=== PATIENT | male | born 1960 | race African-American/Black ===

== ENCOUNTER 2018-05-09 22:55 | Inpatient (IN) | payer MEDICAID ==
[~2018-05-09] VITALS: Ht 177.8 cm; Wt 77.1 kg
[2018-05-10] MEDS ORDERED: ALBUTEROL (0.083%) 2.5MG/3ML NEB HHN STA (02:41)
[2018-05-10] MEDS ORDERED: IPRATROPIUM BROMIDE (0.02%) 0.5MG/2.5ML NEB HHN STA (02:41)
[2018-05-10] MEDS ORDERED: METHYLPREDNISOLONE SOD SUCC 125 MG/2 ML VIAL IV STA (02:41)
[2018-05-10] MEDS ORDERED: ASPIRIN 81MG TABLET PO ONE (02:45)
[2018-05-10] MEDS ORDERED: SODIUM CHLORIDE 0.9% 1000ML BAG (SEPSIS BOLUS) IV ONE (02:45)
[2018-05-10] MEDS ORDERED: NITROGLYCERIN 0.4MG TABLET SL SL PRN (02:45)
[2018-05-10] MEDS ORDERED: LEVOFLOXACIN 750MG PREMIX 150 ML IV ONE (02:45)
[2018-05-10 03:34] LABS: BASOPHILS % 0.5 % (0.0-2.0); EOSINOPHILS % 4.7 % (0.0-5.0); HEMATOCRIT. 38.2 % (42.0-52.0); HEMOGLOBIN. 13.1 g/dL (14.0-18.0); LYMPHOCYTES % 17.1 % (20.0-50.0); MEAN CORPUSCULAR HEMOGLOBIN 30.8 pg (28.0-32.0); MEAN CORPUSCULAR VOLUME 89.9 fL (80.0-94.0); MEAN PLATELET VOLUME 9.7 fl (7.4-10.4); MONOCYTES % 6.5 % (2.0-8.0); NEUTROPHILS % 71.2 % (40.0-76.0); PLATELET 219 x1000/uL (130-400); RED BLOOD CELL COUNT 4.25 mill/uL (4.7-6.1); RED CELL DISTRIBUTION WIDTH 14.2 % (11.6-14.6)
[2018-05-10 03:45] LABS: CHLORIDE 100 mEq/L (98-107)
[2018-05-10 03:47] LABS: D-DIMER 2.77 mg/L FEU (<0.50); PARTIAL THROMBOPLASTIN TIME 29.6 sec (23.4-31.0)
[2018-05-10] MEDS ORDERED: IOHEXOL-350 100 ML BOTTLE ONE (04:54)
[2018-05-10 06:14] LABS: CLARITY URINE CLEAR (CLEAR); COLOR URINE YELLOW (YELLOW); KETONES URINE NEGATIVE (NEGATIVE); LEUKOCYTE ESTERASE URINE NEGATIVE (NEGATIVE); NITRITE URINE NEGATIVE (NEGATIVE); OCCULT BLOOD URINE NEGATIVE (NEGATIVE); PH URINE 7.5 (4.5-8.0); PROTEIN URINE NEGATIVE (NEGATIVE); SPECIFIC GRAVITY URINE 1.007 (1.005-1.030); UROBILINOGEN URINE 0.2 E.U./dL (0.2-1.0)
[2018-05-10] MEDS ORDERED: DEXTROSE 50% WATER 50ML SYRINGE IV PRN (09:00)
[2018-05-10] MEDS: AMLODIPINE 5MG TABLET PO SCH ×2 (09:24→21:26)
[2018-05-10] MEDS ORDERED: METHYLPREDNISOLONE SOD SUCC 40 MG/ML VIAL IV SCH (12:00)
[2018-05-10] MEDS ORDERED: IPRATROPIUM/ALBUTEROL 0.5-3(2.5)MG/3ML NEB HHN SCH (12:00)
[2018-05-10] MEDS ORDERED: INSULIN LISPRO 100 UNITS/ML SUBCUT SCH (13:11)
[2018-05-10 14:00] VITALS: BP 190/94
[2018-05-10] MEDS ORDERED: IPRATROPIUM/ALBUTEROL 0.5-3(2.5)MG/3ML NEB HHN PRN (14:00)
[2018-05-10 14:46] VITALS: BP 190/95
[2018-05-10] MEDS: BLOOD SUGAR DIAGNOSTIC STRIP TEST SCH ×3 (15:06→21:26)
[2018-05-10] MEDS: CLONIDINE 0.1MG TABLET PO PRN ×2 (15:09→23:54)
[2018-05-10 16:00] VITALS: BP 168/89
[2018-05-10] MEDS: AZITHROMYCIN 500 MG TABLET PO SCH (16:38)
[2018-05-10] MEDS: LOSARTAN POTASSIUM 100 MG TABLET PO SCH (16:38)
[2018-05-10] MEDS ORDERED: MONTELUKAST SODIUM 10MG TABLET PO SCH (17:00)
[2018-05-10] MEDS: INSULIN LISPRO 100 UNITS/ML SUBCUT SCH ×2 (17:57→21:28)
[2018-05-10 20:00] VITALS: BP 154/81
[2018-05-10 20:22] LABS: CREATINE KINASE 503 IU/L (39-308)
[2018-05-10] MEDS: INSULIN GLARGINE UD 100 UNITS/ML SYR SUBCUT SCH (21:29)
[2018-05-11] VITALS: BP 212/100
[2018-05-11 04:00] VITALS: BP 150/86
[2018-05-11] MEDS: BLOOD SUGAR DIAGNOSTIC STRIP TEST SCH ×2 (06:58→11:43)
[2018-05-11 07:06] LABS: BASOPHILS % 0.2 % (0.0-2.0); EOSINOPHILS % 1.1 % (0.0-5.0); HEMATOCRIT. 38.4 % (42.0-52.0); MEAN CORPUSCULAR HEMOGLOBIN 30.3 pg (28.0-32.0); MEAN CORPUSCULAR VOLUME 89.6 fL (80.0-94.0); MONOCYTES % 5.7 % (2.0-8.0); PLATELET 248 x1000/uL (130-400); RED BLOOD CELL COUNT 4.29 mill/uL (4.7-6.1); RED CELL DISTRIBUTION WIDTH 13.9 % (11.6-14.6)
[2018-05-11 07:22] LABS: CHLORIDE 101 mEq/L (98-107)
[2018-05-11 08:00] VITALS: BP 177/90
[2018-05-11] MEDS: INSULIN LISPRO 100 UNITS/ML SUBCUT SCH ×2 (09:12→13:09)
[2018-05-11] MEDS: INSULIN GLARGINE UD 100 UNITS/ML SYR SUBCUT SCH (09:12)
[2018-05-11] MEDS: AZITHROMYCIN 500 MG TABLET PO SCH (09:12)
[2018-05-11] MEDS: AMLODIPINE 5MG TABLET PO SCH (09:13)
[2018-05-11] MEDS: LOSARTAN POTASSIUM 100 MG TABLET PO SCH (09:14)
[2018-05-11] MEDS ORDERED: ACETAMINOPHEN 650MG/20.3ML UDC PO PRN (11:15)
[2018-05-11] MEDS ORDERED: HYDROCODONE/ACETAMINOPHEN 5/325MG TABLET PO PRN (11:15)
[2018-05-11 12:00] VITALS: BP 146/74
[2018-05-11] MEDS ORDERED: HYDRALAZINE HCL 50MG TABLET PO SCH (14:00)
[2018-05-11 15:57] VITALS: BP 137/85
== END 2018-05-11 16:30 | disposition home or self-care (01) | DRG 140 ==
LOC: ER 22:55 → 7WST 05-10 04:43 → ENRESERV 05-10 12:14
PROVIDERS: ADMIT Internal Medicine; ATTEND Internal Medicine
DX: J44.1 Chronic obstructive pulmonary disease with (acute) exacerbation (principal); I11.0 Hypertensive heart disease with heart failure; J45.901 Unspecified asthma with (acute) exacerbation; I50.42 Chronic combined systolic (congestive) and diastolic (congestive) heart failure; E11.9 Type 2 diabetes mellitus without complications; F17.200 Nicotine dependence, unspecified, uncomplicated; D64.9 Anemia, unspecified; Z79.899 Other long term (current) drug therapy
CPT/HCPCS: 36415; 71045; 71275; 80048; 80061; 82550; 82553; 82962; 83605; 83880; 84145; 84443; 84484; 85379; 93005; 93306; 93970; 94644; 97162; 99285; J1815; J1956; J2920; J2930; J7030; J7611; Q9967

== ENCOUNTER 2020-01-23 13:24 | Emergency (ER) | payer MEDICAID ==
[~2020-01-23] VITALS: Ht 180.3 cm; Wt 75.0 kg
[2020-01-23 13:37] VITALS: BP 165/95
== END 2020-01-23 16:40 | disposition left against medical advice (07) ==
LOC: ER 13:24
DX: Z53.21 Procedure and treatment not carried out due to patient leaving prior to being seen by health care provider (principal)

== ENCOUNTER 2020-11-17 15:31 | Emergency (ER) | payer MEDICAID ==
[~2020-11-17] VITALS: Ht 177.8 cm; Wt 72.0 kg
[2020-11-17] MEDS ORDERED: ACETAMINOPHEN 325MG TABLET PO ONE (16:30)
[2020-11-17 18:20] VITALS: BP 151/81
== END 2020-11-17 18:21 | disposition home or self-care (01) ==
LOC: ER 15:31
DX: M25.512 Pain in left shoulder (principal); E11.9 Type 2 diabetes mellitus without complications; I10 Essential (primary) hypertension; J45.909 Unspecified asthma, uncomplicated
CPT/HCPCS: 99281

== ENCOUNTER 2021-04-20 08:52 | Emergency (ER) | payer MEDICAID, OTHER ==
[~2021-04-20] VITALS: Ht 175.3 cm; Wt 73.0 kg
[2021-04-20 08:59] VITALS: BP 135/83
== END 2021-04-20 12:16 | disposition left against medical advice (07) ==
LOC: ER 08:52
DX: Z53.21 Procedure and treatment not carried out due to patient leaving prior to being seen by health care provider (principal); R06.02 Shortness of breath
CPT/HCPCS: 93005

== ENCOUNTER 2022-01-01 13:22 | Emergency (ER) | payer MEDICAID, OTHER ==
[~2022-01-01] VITALS: Ht 177.8 cm; Wt 70.0 kg
[2022-01-01 15:56] VITALS: BP 164/90
[2022-01-01] MEDS ORDERED: IBUPROFEN 800MG TABLET PO ONE (16:00)
[2022-01-01 16:42] LABS: BASOPHILS % 0.6 % (0.0-2.0); EOSINOPHILS % 2.8 % (0.0-5.0); HEMATOCRIT. 42.4 % (42.0-52.0); HEMOGLOBIN. 14.7 g/dL (14.0-18.0); LYMPHOCYTES % 24.1 % (20.0-50.0); MEAN CORPUSCULAR HEMOGLOBIN 30.9 pg (28.0-32.0); MEAN PLATELET VOLUME 9.7 fl (7.4-10.4); MONOCYTES % 5.7 % (2.0-8.0); NEUTROPHILS % 66.8 % (40.0-76.0); PLATELET 263 x1000/uL (130-400); RED BLOOD CELL COUNT 4.76 mill/uL (4.7-6.1); RED CELL DISTRIBUTION WIDTH 13.7 % (11.6-14.6)
[2022-01-01 16:55] LABS: CHLORIDE 100 mEq/L (98-107)
[2022-01-01] MEDS ORDERED: IBUP-2029 MT (17:52)
[2022-01-01] MEDS ORDERED: PENI500T MT (17:52)
== END 2022-01-01 18:05 | disposition home or self-care (01) ==
LOC: ER 13:22
DX: K02.9 Dental caries, unspecified (principal); I10 Essential (primary) hypertension; E11.65 Type 2 diabetes mellitus with hyperglycemia
CPT/HCPCS: 36415; 71046; 80053; 82962; 85025; 99284

== ENCOUNTER 2023-05-23 03:12 | Emergency (ER) | payer MEDICAID, OTHER ==
[~2023-05-23] VITALS: Ht 172.7 cm; Wt 77.0 kg
[~2023-05-23 03:12] MED LIST: ALBU18HF2 IH; CARV12.545 MT; CLOP75TA15 PO; FURO-151 MT; HYDR-4135 PO; IBUP-2029 MT; INSLIS SUBCUT; LANTUSUD SUBCUT; LOSA50TA41 PO; POTA-205 MT; TOPUD PO
[2023-05-23 03:15] VITALS: RESP 25
[2023-05-23] MEDS ORDERED: ALBUTEROL (0.083%) 2.5MG/3ML NEB HHN STA (03:25)
[2023-05-23] MEDS ORDERED: METHYLPREDNISOLONE SOD SUCC 125MG/2ML (ACT-O-VIAL) IV STA (03:25)
[2023-05-23] MEDS ORDERED: IPRATROPIUM BROMIDE (0.02%) 0.5MG/2.5ML NEB HHN STA (03:25)
[2023-05-23] MEDS ORDERED: MAGNESIUM 2 G PREMIX 50 ML IV ONE (03:30)
[2023-05-23] MEDS ORDERED: ASPIRIN 81MG TABLET PO ONE (03:30)
[2023-05-23 03:48] LABS: BASOPHILS % 0.8 % (0.0-2.0); EOSINOPHILS % 6.8 % (0.0-5.0); HEMOGLOBIN. 14.4 g/dL (14.0-18.0); LYMPHOCYTES % 36.2 % (20.0-50.0); MEAN CORPUSCULAR HEMOGLOBIN 30.1 pg (28.0-32.0); MEAN CORPUSCULAR HGB CONC 33.6 g/dL (31.0-37.0); MEAN CORPUSCULAR VOLUME 89.8 fL (80.0-94.0); MEAN PLATELET VOLUME 10.2 fl (7.4-10.4); MONOCYTES % 8.9 % (2.0-8.0); NEUTROPHILS % 47.3 % (40.0-76.0); PLATELET 220 x1000/uL (130-400); RED BLOOD CELL COUNT 4.79 mill/uL (4.7-6.1); RED CELL DISTRIBUTION WIDTH 14.6 % (11.6-14.6); WHITE BLOOD COUNT 6.4 x1000/uL (4.5-11.0)
[2023-05-23 04:00] LABS: CHLORIDE 111 mEq/L (98-107); INDEX HEMOLYSI 1 (1-3); INDEX ICTERIC 1 (1-4); INDEX LIPEMIC 1 (1-3); POTASSIUM 3.7 mEq/L (3.5-5.1); SODIUM 142 mEq/L (136-145)
[2023-05-23 04:09] LABS: ALANINE AMINOTRANSFERASE 101 IU/L (13-61); ALBUMIN 3.7 g/dL (3.4-5.0); ASPARTATE AMINOTRANSFERASE 123 IU/L (15-37); BILIRUBIN TOTAL 0.3 mg/dL (0.1-1.0); CALCIUM 8.2 mg/dL (8.5-10.1); CARBON DIOXIDE 26 mEq/L (21-32); CREATININE 1.2 mg/dL (0.6-1.3); GLUCOSE 151 mg/dL (70-105); NT PRO B-TYPE NATRIURETIC PEP 1145 pg/mL (5-125); PROTEIN TOTAL 7.8 g/dL (6.0-8.3); TROPONIN I HIGH SENSITIVITY 32 ng/L (<78); UREA NITROGEN BLOOD 21 mg/dL (7-21)
[2023-05-23 05:58] LABS: TROPONIN I HIGH SENSITIVITY 37 ng/L (<78)
[2023-05-23] MEDS ORDERED: IPRATROPIUM/ALBUTEROL 0.5-3(2.5)MG/3ML NEB HHN PRN (06:15)
[2023-05-23] MEDS ORDERED: BUDESONIDE 0.5MG/2ML NEB HHN SCH ×2 (06:15→09:00)
[2023-05-23 06:41] LABS: BG BASE EXCESS 2.1 mmol/L (-2.0-2.0); BG CARBOXYHEMOGLOBIN 0.7 % (0.5-1.5); BG DEOXYHEMOGLOBIN 1.2 % (0.0-5.0); BG FRACTION INSPIRED OXYGEN 100; BG HCO3 ACT 23.1 mmol/L (22.0-26.0); BG METHEMOGLOBIN 0.2 % (0.0-1.5); BG OXYGEN SATURATION 98.8 % (92.0-98.5); BG OXYHEMOGLOBIN 97.9 % (94.0-97.0); BG PCO2 26.4 mmHg (35.0-45.0); BG PH 7.559 (7.350-7.450); BG PO2 137.8 mmHg (75.0-100.0); BG SAMPLE SITE RIGHT RADIAL; BG TOTAL HEMOGLOBIN 13.9 g/dL (12.0-18.0); BG VENT MODE MASK - BIPAP
[2023-05-23] MEDS ORDERED: CLONIDINE 0.1MG TABLET PO PRN (08:30)
[2023-05-23] MEDS ORDERED: DEXTROSE 50% WATER 50ML SYRINGE IV PRN (08:45)
[2023-05-23] MEDS ORDERED: CLOPIDOGREL 75MG TABLET PO SCH (09:00)
[2023-05-23] MEDS ORDERED: FUROSEMIDE 40MG/4ML VIAL IVP NR (09:00)
[2023-05-23] MEDS: BLOOD SUGAR DIAGNOSTIC STRIP TEST SCH ×2 (09:07→13:20)
[2023-05-23 09:25] VITALS: PULSE 80; RESP 16; O2SAT 99
[2023-05-23] MEDS: INSULIN LISPRO 100 UNITS/ML SUBCUT SCH ×2 (09:40→14:23)
[2023-05-23 09:53] LABS: PHOSPHORUS 2.5 mg/dL (2.5-4.9)
[2023-05-23 09:55] LABS: ETHANOL BLOOD < 10 mg/dL (<10); T4 FREE 1.12 ng/dL (0.76-1.46); THYROID STIMULATING HORMONE 0.41 uIU/mL (0.36-3.74)
[2023-05-23] MEDS ORDERED: ASPIRIN 81MG EC TABLET PO SCH (10:00)
[2023-05-23] MEDS ORDERED: INSULIN GLARGINE 100 UNITS/ML SUBCUT SCH ×2 (10:00)
[2023-05-23] MEDS ORDERED: HYDRALAZINE HCL 50MG TABLET PO SCH (10:00)
[2023-05-23 10:19] LABS: *AMPHETAMINES SCREEN URINE NEGATIVE (NEGATIVE); *BARBITURATES SCREEN URINE NEGATIVE (NEGATIVE); *BENZODIAZEPINES SCREEN URINE NEGATIVE (NEGATIVE); *COCAINE SCREEN URINE PRESUMTIVE POSITIVE (NEGATIVE); CANNABINOID URINE SCREEN PRESUMTIVE POSITIVE (NEGATIVE); ECSTASY MDMA SCREEN URINE NEGATIVE (NEGATIVE); METHADONE URINE SCREEN NEGATIVE (NEGATIVE); OPIATES URINE SCREEN NEGATIVE (NEGATIVE); PHENCYCLIDINE URINE SCREEN NEGATIVE (NEGATIVE)
[2023-05-23 11:34] LABS: TROPONIN I HIGH SENSITIVITY 35 ng/L (<78)
[2023-05-23] MEDS ORDERED: LOSARTAN 50 MG TABLET PO SCH (12:00)
[2023-05-23] MEDS ORDERED: IPRATROPIUM/ALBUTEROL 0.5-3(2.5)MG/3ML NEB HHN SCH (12:00)
[2023-05-23 12:28] VITALS: BP 185/96; PULSE 80; RESP 15; TEMP 98.3
[2023-05-23] MEDS ORDERED: ACETAMINOPHEN 325MG TABLET PO PRN ×2 (12:30)
[2023-05-23] MEDS ORDERED: ONDANSETRON HCL 4MG/2ML INJ IV PRN (12:30)
[2023-05-23] MEDS ORDERED: LORATADINE 10MG TABLET PO SCH (13:30)
[2023-05-23] MEDS ORDERED: PREDNISONE 20MG TABLET PO SCH (17:00)
[2023-05-24] MEDS ORDERED: FUROSEMIDE 20MG/2ML VIAL IVP SCH (09:00)
== END 2023-05-23 14:46 | disposition left against medical advice (07) ==
LOC: ER 03:12 → EDBEDREQSVC 07:07 → SUPCPDRO 11:13 → ER 14:46
DX: J44.9 Chronic obstructive pulmonary disease, unspecified (principal); I10 Essential (primary) hypertension
CPT/HCPCS: 80061; 80053; 80305; 80320; 82962; 83036; 83880; 84439; 83690; 83735; 84100; 84443; 85025; 87040; 87186; 84484; 87804 ×2; 87077; 36415; 71045; 94640; 82805; 82375; 94660; 93005; 96365; 96372; 96375; 99291; 36600; Z7610 ×6; J1940; J1815 ×2; J3475; J2930; J7626; G0480

== ENCOUNTER 2024-03-26 06:22 | Inpatient (IN) | payer MEDICARE, MEDICAID ==
[~2024-03-26] VITALS: Ht 185.4 cm; Wt 78.9 kg
[~2024-03-26 06:22] MED LIST changes: +AMOX1TAB16 MT; +BUSP5TAB3 PO; +CARV6.2548 MT; +GUAI600T44 MT; -HYDR-4135 PO; -IBUP-2029 MT; +SULF1TAB48 MT
[2024-03-26] MEDS: ASPIRIN 325MG TABLET PO ONE (06:58)
[2024-03-26 07:11] LABS: CHLORIDE 105 mEq/L (98-107); POTASSIUM 3.6 mEq/L (3.5-5.1); SODIUM 141 mEq/L (136-145)
[2024-03-26 07:13] LABS: CALCIUM 9.2 mg/dL (8.7-10.4); CARBON DIOXIDE 29 mEq/L (21-32)
[2024-03-26 07:17] LABS: CREATININE 1.4 mg/dL (0.6-1.3); GLUCOSE 83 mg/dL (70-105)
[2024-03-26 07:18] LABS: TROPONIN I HIGH SENSITIVITY 31 ng/L (3.0-53); UREA NITROGEN BLOOD 19 mg/dL (9-23)
[2024-03-26 08:09] LABS: BASOPHILS % 0.4 % (0.0-2.0); DIFFERENTIAL COMMENT 0; EOSINOPHILS % 4.4 % (0.0-5.0); HEMATOCRIT. 44.4 % (42.0-52.0); HEMOGLOBIN. 14.8 g/dL (14.0-18.0); LYMPHOCYTES % 14.8 % (20.0-50.0); MEAN CORPUSCULAR HEMOGLOBIN 30.2 pg (28.0-32.0); MEAN CORPUSCULAR HGB CONC 33.3 g/dL (31.0-37.0); MEAN CORPUSCULAR VOLUME 90.6 fL (80.0-94.0); MEAN PLATELET VOLUME 10.5 fl (7.4-10.4); MONOCYTES % 7.2 % (2.0-8.0); NEUTROPHILS % 73.2 % (40.0-76.0); PLATELET 212 x1000/uL (130-400); RED CELL DISTRIBUTION WIDTH 14.4 % (11.6-14.6); WHITE BLOOD COUNT 9.9 x1000/uL (4.5-11.0)
[2024-03-26 09:11] LABS: TROPONIN I HIGH SENSITIVITY 28 ng/L (3.0-53)
[2024-03-26] MEDS: HYDRALAZINE 20MG/ML VIAL IV PRN (10:01)
[2024-03-26] MEDS ORDERED: HYDRALAZINE 20MG/ML VIAL IV SCH (12:00)
[2024-03-26] MEDS ORDERED: DEXTROSE 50% WATER 50ML SYRINGE IV PRN (14:00)
[2024-03-26] MEDS ORDERED: IPRATROPIUM/ALBUTEROL 0.5-3(2.5)MG/3ML NEB HHN PRN (14:00)
[2024-03-26] MEDS: SODIUM CHLORIDE 0.45% 1,000 ML IV ONE (14:22)
[2024-03-26] MEDS: BLOOD SUGAR DIAGNOSTIC STRIP TEST SCH (17:10)
[2024-03-26] MEDS: INSULIN LISPRO 100 UNITS/ML SUBCUT SCH (18:29)
[2024-03-26 23:45] VITALS: BP 161/73; PULSE 83; RESP 17; TEMP 37.0296
[2024-03-27] VITALS (9 sets, daily range): BP systolic 147–170; BP diastolic 76–91; PULSE 66–79; RESP 16–20; TEMP 36.61404–36.6696; O2SAT 97–100
[2024-03-27] MEDS: IPRATROPIUM/ALBUTEROL 0.5-3(2.5)MG/3ML NEB HHN SCH ×2 (03:11→13:36)
[2024-03-27] MEDS ORDERED: ONDANSETRON HCL 4MG/2ML INJ IV PRN (12:30)
[2024-03-27] MEDS ORDERED: ACETAMINOPHEN 325MG TABLET PO PRN (12:30)
[2024-03-27] MEDS ORDERED: DOCUSATE SODIUM 100MG CAPSULE PO PRN (12:30)
[2024-03-27] MEDS ORDERED: INSULIN LISPRO 100 UNITS/ML SUBCUT SCH (12:40)
[2024-03-27] MEDS: LOSARTAN 50 MG TABLET PO SCH (13:09)
[2024-03-27] MEDS: FUROSEMIDE 40MG/4ML VIAL IVP SCH (13:09)
[2024-03-27] MEDS: PANTOPRAZOLE SODIUM 40 MG/VIAL IV SCH (13:09)
[2024-03-27] MEDS: CARVEDILOL 6.25 MG TABLET PO SCH (13:09)
[2024-03-27] MEDS: ENOXAPARIN 40MG/0.4ML SYR SUBCUT SCH (13:11)
[2024-03-27] MEDS: INSULIN LISPRO 100 UNITS/ML SUBCUT SCH (13:20)
[2024-03-27 16:23] LABS: BASOPHILS % 0.8 % (0.0-2.0); EOSINOPHILS % 6.2 % (0.0-5.0); HEMATOCRIT. 41.6 % (42.0-52.0); HEMOGLOBIN. 14.3 g/dL (14.0-18.0); LYMPHOCYTES % 21.8 % (20.0-50.0); MEAN CORPUSCULAR HEMOGLOBIN 31.2 pg (28.0-32.0); MEAN CORPUSCULAR HGB CONC 34.3 g/dL (31.0-37.0); MEAN CORPUSCULAR VOLUME 90.9 fL (80.0-94.0); MEAN PLATELET VOLUME 10.3 fl (7.4-10.4); MONOCYTES % 7.8 % (2.0-8.0); NEUTROPHILS % 63.4 % (40.0-76.0); PLATELET 198 x1000/uL (130-400); RED BLOOD CELL COUNT 4.58 mill/uL (4.7-6.1); RED CELL DISTRIBUTION WIDTH 14.3 % (11.6-14.6); WHITE BLOOD COUNT 6.6 x1000/uL (4.5-11.0)
[2024-03-27 16:28] LABS: D-DIMER 0.57 mg/L FEU (<0.50); PROTHROMBIN TIME 11.1 sec (9.6-11.0)
[2024-03-27 16:29] LABS: CHLORIDE 105 mEq/L (98-107); POTASSIUM 3.8 mEq/L (3.5-5.1); SODIUM 139 mEq/L (136-145)
[2024-03-27 16:30] LABS: CALCIUM 9.5 mg/dL (8.7-10.4); CARBON DIOXIDE 26 mEq/L (21-32)
[2024-03-27 16:35] LABS: CREATININE 1.4 mg/dL (0.6-1.3); GLUCOSE 162 mg/dL (70-105)
[2024-03-27 16:36] LABS: LDL CHOLESTEROL 50 mg/dL (5-100); TRIGLYCERIDE 51 mg/dL (0-150); UREA NITROGEN BLOOD 14 mg/dL (9-23)
[2024-03-27 16:37] LABS: ALANINE AMINOTRANSFERASE 25 IU/L (10-49); ALBUMIN 4.1 g/dL (3.2-4.8); ASPARTATE AMINOTRANSFERASE 28 IU/L (<34); BILIRUBIN DIRECT 0.2 mg/dL (<=3.0); CHOLESTEROL 142 mg/dL (<200); CREATINE KINASE MB FRACTION 3.8 ng/mL (0.5-3.6); HDL CHOLESTEROL 76 mg/dL (>55); PHOSPHORUS 3.6 mg/dL (2.5-4.9)
[2024-03-27 16:38] LABS: BILIRUBIN TOTAL 0.5 mg/dL (0.1-1.0)
[2024-03-27 16:41] LABS: T4 FREE 1.25 ng/dL (0.89-1.76); THYROID STIMULATING HORMONE 1.69 uIU/mL (0.55-4.78)
[2024-03-27] MEDS: INSULIN GLARGINE 100 UNITS/ML SUBCUT SCH (21:14)
[2024-03-27 23:37] LABS: CREATINE KINASE MB FRACTION 3.8 ng/mL (0.5-3.6)
[2024-03-28] VITALS (8 sets, daily range): BP systolic 140–160; BP diastolic 72–93; PULSE 66–80; RESP 18–20; TEMP 36.28068–37.11408; O2SAT 95–100
[2024-03-28 06:33] LABS: BASOPHILS % 0.5 % (0.0-2.0); EOSINOPHILS % 8.9 % (0.0-5.0); HEMOGLOBIN. 13.7 g/dL (14.0-18.0); LYMPHOCYTES % 20.1 % (20.0-50.0); MEAN CORPUSCULAR HEMOGLOBIN 30.6 pg (28.0-32.0); MEAN CORPUSCULAR HGB CONC 34.2 g/dL (31.0-37.0); MEAN CORPUSCULAR VOLUME 89.5 fL (80.0-94.0); MEAN PLATELET VOLUME 10.4 fl (7.4-10.4); MONOCYTES % 9.9 % (2.0-8.0); NEUTROPHILS % 60.6 % (40.0-76.0); PLATELET 211 x1000/uL (130-400); RED BLOOD CELL COUNT 4.48 mill/uL (4.7-6.1); RED CELL DISTRIBUTION WIDTH 14.1 % (11.6-14.6)
[2024-03-28 06:44] LABS: CARBON DIOXIDE 29 mEq/L (21-32); CHLORIDE 103 mEq/L (98-107); POTASSIUM 3.9 mEq/L (3.5-5.1); SODIUM 139 mEq/L (136-145)
[2024-03-28 06:50] LABS: CREATININE 1.4 mg/dL (0.6-1.3); GLUCOSE 154 mg/dL (70-105)
[2024-03-28 06:51] LABS: UREA NITROGEN BLOOD 20 mg/dL (9-23)
[2024-03-28 06:53] LABS: PHOSPHORUS 4.3 mg/dL (2.5-4.9)
[2024-03-28] MEDS: IPRATROPIUM/ALBUTEROL 0.5-3(2.5)MG/3ML NEB HHN PRN (08:28)
[2024-03-28 19:59] LABS: CLARITY URINE CLEAR (CLEAR); COLOR URINE YELLOW (YELLOW); GLUCOSE URINE NEGATIVE (NEGATIVE); KETONES URINE NEGATIVE (NEGATIVE); LEUKOCYTE ESTERASE URINE NEGATIVE (NEGATIVE); NITRITE URINE NEGATIVE (NEGATIVE); OCCULT BLOOD URINE NEGATIVE (NEGATIVE); PH URINE 6.5 (4.5-8.0); PROTEIN URINE NEGATIVE (NEGATIVE); SPECIFIC GRAVITY URINE 1.005 (1.005-1.030); UROBILINOGEN URINE 0.2 E.U./dL (0.2-1.0)
[2024-03-28 20:16] LABS: *AMPHETAMINES SCREEN URINE NEGATIVE (NEGATIVE); *BARBITURATES SCREEN URINE NEGATIVE (NEGATIVE); *BENZODIAZEPINES SCREEN URINE NEGATIVE (NEGATIVE)
[2024-03-28 20:17] LABS: *COCAINE SCREEN URINE NEGATIVE (NEGATIVE); CANNABINOID URINE SCREEN PRESUMPTIVE POSITIVE (NEGATIVE); ECSTASY MDMA SCREEN URINE NEGATIVE (NEGATIVE); METHADONE URINE SCREEN NEGATIVE (NEGATIVE); OPIATES URINE SCREEN NEGATIVE (NEGATIVE); PHENCYCLIDINE URINE SCREEN NEGATIVE (NEGATIVE)
[2024-03-29] VITALS (12 sets, daily range): BP systolic 104–178; BP diastolic 77–94; PULSE 64–73; RESP 16–20; TEMP 36.114–37.05852; O2SAT 95–100
[2024-03-29] MEDS: CLONIDINE 0.1MG TABLET PO PRN (05:11)
[2024-03-29] MEDS: LOSARTAN 100 MG TABLET PO SCH (09:57)
[2024-03-30] VITALS (8 sets, daily range): BP systolic 119–169; BP diastolic 52–98; PULSE 68–80; RESP 16–19; TEMP 36.3918–37.89192; O2SAT 98–100
[2024-03-30] MEDS: HYDRALAZINE HCL 50MG TABLET PO SCH (09:26)
[2024-03-30] MEDS: FAMOTIDINE 20MG/2ML VIAL IV SCH (09:26)
[2024-03-30] MEDS: ACETAMINOPHEN 325MG TABLET PO PRN (11:19)
[2024-03-30] MEDS: HYDRALAZINE HCL 25MG TABLET PO SCH (14:10)
[2024-03-30] MEDS: LABETALOL HCL 200MG TABLET PO SCH (20:42)
[2024-03-31] VITALS: BP 138/76; PULSE 76; RESP 18; TEMP 36.78072; O2SAT 99
[2024-03-31 04:00] VITALS: BP 144/76; PULSE 70; RESP 18; TEMP 38.00304; O2SAT 98
[2024-03-31 08:00] VITALS: BP 159/79; PULSE 68; RESP 18; TEMP 36.55848; O2SAT 100
[2024-03-31 10:46] VITALS: PULSE 86; RESP 18; O2SAT 97
[2024-03-31] MEDS ORDERED: FURO-151 MT (11:17)
[2024-03-31] MEDS ORDERED: LOSA100T33 MT (11:17)
[2024-03-31] MEDS ORDERED: LABE200T9 MT (11:17)
[2024-03-31 12:00] VITALS: BP 127/62; PULSE 64; RESP 18; TEMP 36.3918; TEMP 36.39180; O2SAT 100; O2SAT 97
== END 2024-03-31 14:40 | disposition home or self-care (01) | DRG 140 ==
LOC: ER 06:22 → 5WST 06:55 → 8WST 23:59
PROVIDERS: ADMIT Internal Medicine; ATTEND Internal Medicine
DX: J44.1 Chronic obstructive pulmonary disease with (acute) exacerbation (principal); I50.23 Acute on chronic systolic (congestive) heart failure; E11.649 Type 2 diabetes mellitus with hypoglycemia without coma; I42.0 Dilated cardiomyopathy; N17.9 Acute kidney failure, unspecified; I95.9 Hypotension, unspecified; J68.0 Bronchitis and pneumonitis due to chemicals, gases, fumes and vapors; I11.0 Hypertensive heart disease with heart failure; I42.2 Other hypertrophic cardiomyopathy; Z20.822 Contact with and (suspected) exposure to COVID-19; I16.0 Hypertensive urgency; F17.210 Nicotine dependence, cigarettes, uncomplicated; F12.10 Cannabis abuse, uncomplicated; Z63.4 Disappearance and death of family member; Z79.4 Long term (current) use of insulin; Z89.411 Acquired absence of right great toe; T59.891A Toxic effect of other specified gases, fumes and vapors, accidental (unintentional), initial encounter; Y92.89 Other specified places as the place of occurrence of the external cause
CPT/HCPCS: 36415; 71045; 80048; 80061; 80076; 80305; 81003; 82550; 82553; 82962; 83036; 83735; 83880; 84100; 84439; 84443; 84480; 84484; 85025; 85379; 87426; 93005; 93306; 94640; 99285; J0360; J1650; J1815; J1940; J2470; J3490

== ENCOUNTER 2024-12-24 12:59 | Emergency (ER) | payer OTHER, MEDICARE, MEDICAID ==
[~2024-12-24] VITALS: Ht 185.4 cm; Wt 91.0 kg
[~2024-12-24 12:59] MED LIST changes: -AMOX1TAB16 MT; -CARV12.545 MT; -CARV6.2548 MT; +LABE200T9 MT; +LOSA100T33 MT; -LOSA50TA41 PO; -SULF1TAB48 MT
[2024-12-24 13:03] VITALS: O2SAT 99
[2024-12-24] MEDS: FLUORESCEIN SODIUM 1MG/STRIP BOTHEYE ONE ×2 (13:30→14:31)
[2024-12-24] MEDS: BALANCED SALT IRRIG SOLN 15ML IR ONE (13:30)
[2024-12-24] MEDS: TETRACAINE 0.5% OPHTH DROPS 4ML BOTHEYE ONE (13:30)
[2024-12-24] MEDS ORDERED: ERYT1OIN6 EACHEYE (14:27)
[2024-12-24 14:48] VITALS: BP 166/90; PULSE 73; RESP 18; TEMP 36.7; O2SAT 98
[2024-12-24] MEDS: ERYTHROMYCIN BASE 0.5% OPHTH OINT 3.5GM BOTHEYE ONE (14:49)
== END 2024-12-24 14:54 ==
LOC: ER 12:59
DX: E11.9 Type 2 diabetes mellitus without complications (principal); I11.0 Hypertensive heart disease with heart failure; I50.9 Heart failure, unspecified; Z65.3 Problems related to other legal circumstances; J45.909 Unspecified asthma, uncomplicated; Z79.02 Long term (current) use of antithrombotics/antiplatelets; Z79.899 Other long term (current) drug therapy
CPT/HCPCS: 99283; Z7610

== ENCOUNTER 2025-04-18 01:32 | Inpatient (IN) | payer BC, MEDICAID, MEDICARE ==
[2025-04-18] VITALS (7 sets, daily range): BP systolic 102–162; BP diastolic 52–86; PULSE 64–99; RESP 16–26; TEMP 36.3–36.8; O2SAT 95–98
[~2025-04-18] VITALS: Ht 177.8 cm; Wt 63.6 kg
[~2025-04-18 01:32] MED LIST changes: -ALBU18HF2 IH; +AMLO5TAB88 MT; -BUSP5TAB3 PO; -CLOP75TA15 PO; -FURO-151 MT; -GUAI600T44 MT; +HYDR100T11 PO; +INSHUMSS SUBCUT; -INSLIS SUBCUT; +INSU100I28 SQ; -LANTUSUD SUBCUT; -LOSA100T33 MT; -POTA-205 MT
[2025-04-18] MEDS: IPRATROPIUM BROMIDE (0.02%) 0.5MG/2.5ML NEB HHN ONE (02:02)
[2025-04-18] MEDS: ALBUTEROL (0.083%) 2.5MG/3ML NEB HHN ONE (02:02)
[2025-04-18] MEDS: HYDRALAZINE 20MG/ML VIAL IV ONE (02:18)
[2025-04-18] MEDS: METHYLPREDNISOLONE SOD SUCC 125MG/2ML (ACT-O-VIAL) IV ONE (02:18)
[2025-04-18 02:32] LABS: BASOPHILS % 0.6 % (0.0-2.0); EOSINOPHILS % 4.1 % (0.0-5.0); HEMATOCRIT. 37.3 % (42.0-52.0); HEMOGLOBIN. 12.4 g/dL (14.0-18.0); LYMPHOCYTES % 22.4 % (20.0-50.0); MEAN PLATELET VOLUME 10.0 fl (7.4-10.4); MONOCYTES % 7.2 % (2.0-8.0); NEUTROPHILS % 65.7 % (40.0-76.0); PLATELET 205 x1000/uL (130-400); RED BLOOD CELL COUNT 4.13 mill/uL (4.7-6.1); RED CELL DISTRIBUTION WIDTH 14.5 % (11.6-14.6)
[2025-04-18 02:43] LABS: BG BASE EXCESS 4.2 mmol/L (-2.0-3.0); BG CARBOXYHEMOGLOBIN 0.6 % (0.5-1.5); BG DEOXYHEMOGLOBIN 2.9 % (0.0-5.0); BG FRACTION INSPIRED OXYGEN 21; BG HCO3 ACT 27.5 mmol/L (21.0-28.0); BG METHEMOGLOBIN 0.3 % (0.5-1.5); BG OXYGEN SATURATION 97.1 % (94.0-98.0); BG OXYHEMOGLOBIN 96.2 % (94.0-98.0); BG PCO2 36.8 mmHg (35.0-48.0); BG PH 7.491 (7.350-7.450); BG PO2 90.2 mmHg (83.0-108.0); BG SAMPLE SITE LEFT RADIAL; BG TOTAL HEMOGLOBIN 13.2 g/dL (13.5-17.5); BG VENT MODE ROOM AIR
[2025-04-18 02:45] LABS: INR 1.0
[2025-04-18 02:54] LABS: CREATININE 1.4 mg/dL (0.6-1.3); UREA NITROGEN BLOOD 18 mg/dL (9-23)
[2025-04-18 02:56] LABS: ASPARTATE AMINOTRANSFERASE 39 IU/L (<34); BILIRUBIN DIRECT 0.2 mg/dL (<=3.0); BILIRUBIN TOTAL 0.5 mg/dL (0.1-1.0); PROTEIN TOTAL 7.0 g/dL (6.0-8.3); TROPONIN I HIGH SENSITIVITY 39 ng/L (3.0-53)
[2025-04-18] MEDS: FUROSEMIDE 40MG/4ML VIAL IVP NR (04:00)
[2025-04-18] MEDS ORDERED: IPRATROPIUM/ALBUTEROL 0.5-3(2.5)MG/3ML NEB HHN PRN (04:45)
[2025-04-18] MEDS ORDERED: ACETAMINOPHEN 325MG TABLET PO PRN ×2 (04:45)
[2025-04-18] MEDS ORDERED: MAGNESIUM/ALUMINUM HYDROXIDE/SIMETHICONE 30ML UDC PO PRN (04:45)
[2025-04-18] MEDS ORDERED: ZOLPIDEM TARTRATE 5MG TABLET PO PRN (04:45)
[2025-04-18] MEDS ORDERED: DIPHENHYDRAMINE 50MG/ML VIAL IV PRN (04:45)
[2025-04-18] MEDS: SODIUM CHLORIDE 0.9% 3ML FLUSH IVF SCH (06:03)
[2025-04-18] MEDS: HYDRALAZINE 20MG/ML VIAL IV PRN (07:22)
[2025-04-18] MEDS: INSULIN LISPRO 100 UNITS/ML SUBCUT SCH (08:20)
[2025-04-18] MEDS: BLOOD SUGAR DIAGNOSTIC STRIP TEST SCH (09:30)
[2025-04-18] MEDS: HYDRALAZINE HCL 100MG TABLET PO SCH (09:31)
[2025-04-18] MEDS: CARVEDILOL 3.125 MG TABLET PO SCH (09:31)
[2025-04-18] MEDS: LABETALOL HCL 200MG TABLET PO SCH (09:31)
[2025-04-18] MEDS: ISOSORBIDE MONONITRATE 30MG TABLET SR 24HR PO SCH (09:31)
[2025-04-18] MEDS: POTASSIUM CHLORIDE 20MEQ TABLET SR PO SCH (09:32)
[2025-04-18] MEDS: ENOXAPARIN 40MG/0.4ML SYR SUBCUT SCH (09:33)
[2025-04-18] MEDS: INFLUENZA VACCINE 05/PF 0.5 ML SYRINGE IM ONE (10:45)
[2025-04-18] MEDS ORDERED: PROMETHAZINE/DEXTROMETHORPHAN 6.25-15MG/5ML PO PRN (18:45)
[2025-04-18] MEDS: GUAIFENESIN 600MG ER TABLET PO SCH (21:29)
[2025-04-19] VITALS (7 sets, daily range): BP systolic 87–139; BP diastolic 47–76; PULSE 61–89; RESP 18–22; TEMP 36.1–36.7; O2SAT 93–98
[2025-04-19] MEDS: INSULIN GLARGINE 100 UNITS/ML SUBCUT SCH (00:08)
[2025-04-19] MEDS: ENOXAPARIN 30MG/0.3ML SYR SUBCUT SCH (09:29)
[2025-04-19] MEDS: ONDANSETRON HCL 4MG/2ML INJ IV PRN (09:29)
[2025-04-19] MEDS: AZITHROMYCIN 500 MG TABLET PO SCH (09:30)
[2025-04-19] MEDS: LINAGLIPTIN 5MG TABLET PO SCH (09:30)
[2025-04-19] MEDS: DEXTROSE 50% WATER 50ML SYRINGE IV PRN (12:25)
[2025-04-19 13:28] LABS: CREATININE 1.8 mg/dL (0.6-1.3)
[2025-04-19 13:30] LABS: UREA NITROGEN BLOOD 36 mg/dL (9-23)
[2025-04-19 13:31] LABS: PHOSPHORUS 4.4 mg/dL (2.5-4.9)
[2025-04-19] MEDS: BISACODYL 5MG TABLET PO PRN (14:12)
[2025-04-19] MEDS: IPRATROPIUM/ALBUTEROL 0.5-3(2.5)MG/3ML NEB HHN SCH (20:10)
[2025-04-20] VITALS (10 sets, daily range): BP systolic 122–178; BP diastolic 70–88; PULSE 64–91; RESP 17–20; TEMP 36.3–37.1; O2SAT 96–99
[2025-04-21] VITALS (10 sets, daily range): BP systolic 118–161; BP diastolic 64–79; PULSE 61–85; RESP 14–20; TEMP 36.6–37.1; O2SAT 94–99
[2025-04-21] MEDS: CLONIDINE 0.1MG TABLET PO PRN (05:08)
[2025-04-21] MEDS: NIFEDIPINE XL 60MG TAB PO SCH (09:35)
[2025-04-22] VITALS (8 sets, daily range): BP systolic 122–154; BP diastolic 64–85; PULSE 71–77; RESP 14–21; TEMP 36.2–36.8; O2SAT 96–100
== END 2025-04-22 16:00 | disposition home or self-care (01) | DRG 291 ==
LOC: ER 01:32 → 7WST 03:37 → EDBEDREQ 03:48 → EDBEDREQTM 03:48 → ENRESERV 07:01
PROVIDERS: ADMIT Internal Medicine; ATTEND Internal Medicine
DX: I13.0 Hypertensive heart and chronic kidney disease with heart failure and stage 1 through stage 4 chronic kidney disease, or unspecified chronic kidney disease (principal); I50.23 Acute on chronic systolic (congestive) heart failure; J44.1 Chronic obstructive pulmonary disease with (acute) exacerbation; J44.0 Chronic obstructive pulmonary disease with (acute) lower respiratory infection; E11.22 Type 2 diabetes mellitus with diabetic chronic kidney disease; N18.9 Chronic kidney disease, unspecified; Z20.822 Contact with and (suspected) exposure to COVID-19; F14.90 Cocaine use, unspecified, uncomplicated; J20.9 Acute bronchitis, unspecified; Z91.148 Patient's other noncompliance with medication regimen for other reason; Z79.899 Other long term (current) drug therapy
CPT/HCPCS: 36415; 36600; 71045; 80048; 80076; 80320; 82375; 82805; 82962; 83735; 83880; 84100; 84484; 85025; 87426; 93005; 94070; 94640; 94664; 96374; 96375; 99285; J0360; J1650; J1815; J1938; J2405; J2919; G0480